=== PATIENT | male | born 1980 | race Hispanic/Latino ===

== ENCOUNTER 2024-09-07 14:23 | Inpatient (IN) | payer OTHER ==
[~2024-09-07] VITALS: Ht 165.1 cm; Wt 63.5 kg
[2024-09-07 15:24] LABS: HEMATOCRIT 21.9 % (38.2-49.6); RED BLOOD COUNT 2.74 x10e6/uL (4.3-5.7); WHITE BLOOD COUNT 7.18 x10e3/uL (4.8-10.8)
[2024-09-07 15:25] LABS: HEMOGLOBIN 6.9 g/dL (14.0-18.0); MEAN CORPUSCULAR HEMOGLOBIN 25.2 pg (28-32); MEAN CORPUSCULAR HGB CONC 31.5 g/dL (31-35); MEAN CORPUSCULAR VOLUME 79.9 fL (81-99); PLATELET COUNT 425 x10e3/uL (140-360); RED CELL DISTRIBUTION WIDTH 16.1 % (11.7-14.4)
[2024-09-07 15:26] LABS: BASOPHILS % 0.1 % (0.0-1.0); EOSINOPHILS # (AUTO) 0.1 (0.0-0.4); EOSINOPHILS % 0.7 % (0.0-6.0); LYMPHOCYTES # (AUTO) 0.5 (1.0-3.2); LYMPHOCYTES % 6.3 % (18.0-39.1); MONOCYTES # (AUTO) 0.8 (0.2-0.8); MONOCYTES % 11.4 % (4.4-11.3); NEUTROPHILS # (AUTO) 5.8 (2.1-6.9); NEUTROPHILS % 80.7 % (38.7-80.0)
[2024-09-07] MEDS: SODIUM CHLORIDE 0.9% 1000ML 1,910 ML IV SCH (15:50)
[2024-09-07 15:56] LABS: INR 1.11; PARTIAL THROMBOPLASTIN TIME 52.3 seconds (23.8-35.5)
[2024-09-07 16:03] LABS: ANION GAP 12.3 mmol/L (8-16); BILIRUBIN,TOTAL 0.2 mg/dL (0.2-1.2); CALCIUM 8.5 mg/dL (8.4-10.2); CREATININE, SERUM 0.9 mg/dL (0.72-1.25); POTASSIUM 4.3 mmol/L (3.5-5.1); TOTAL PROTEIN 9.8 g/dL (6.5-8.1)
[2024-09-07 16:04] LABS: ALBUMIN 2.3 g/dL (3.5-5.0); ALBUMIN/GLOBULIN RATIO 0.3 (0.8-2.0)
[2024-09-07 18:00] LABS: CORONAVIRUS COVID-19 AG NEGATIVE (NEGATIVE); INFLUENZA A AG NEGATIVE (NEGATIVE); INFLUENZA B AG NEGATIVE (NEGATIVE)
[2024-09-07 18:08] LABS: BILIRUBIN,URINE NEGATIVE (NEGATIVE); CLARITY,URINE CLEAR (CLEAR); COLOR,URINE YELLOW (YELLOW); GLUCOSE, URINE NEGATIVE (NEGATIVE); KETONES,URINE NEGATIVE (NEGATIVE); LEUKOCYTE ESTERASE ,URINE SMALL (NEGATIVE); NITRITE,URINE POSITIVE (NEGATIVE); PH,URINE 6 (5 - 7); URINE UROBILINOGEN 0.2 mg/dL (0.2 - 1)
[2024-09-07 18:09] LABS: PROTEIN,URINE DIPSTICK 1+ (NEGATIVE)
[2024-09-07] MEDS ORDERED: SODIUM CHLORIDE 0.9% 1000ML 1,000 ML IV SCH (18:15)
[2024-09-07] MEDS ORDERED: SODIUM CHLORIDE 0.9% 250ML 250 ML IV ONE (18:15)
[2024-09-07] MEDS ORDERED: ONDANSETRON HCL INJ 2MG/ML 2ML 2 MG/ML VIAL IV PRN (18:15)
[2024-09-07 18:24] LABS: BACTERIA,URINE MANY /HPF; RBC,URINE 0-5 /HPF (0-5); WBC,URINE (MAN) 21-50 /HPF (0-5)
[2024-09-07] MEDS ORDERED: ZOLPIDEM TARTRATE 5 MG TAB PO PRN (19:00)
[2024-09-07 19:09] VITALS: PULSE 95; RESP 16; TEMP 100.2
[2024-09-07] MEDS ORDERED: IOPAMIDOL 370 MG/ML 100 ML INFUS..BTL INJ ONE (19:17)
[2024-09-07] MEDS: ACETAMINOPHEN 325 MG TAB PO PRN (20:27)
[2024-09-07 20:50] VITALS: BP 90/62; PULSE 97; RESP 14; TEMP 98.4; O2SAT 100
[2024-09-07 23:13] VITALS: BP 90/55; PULSE 70; RESP 18; TEMP 97.5; O2SAT 98
[2024-09-08] VITALS (11 sets, daily range): BP systolic 97–142; BP diastolic 7–87; PULSE 65–91; RESP 15–20; TEMP 97.6–98.4; O2SAT 97–100
[2024-09-08] MEDS: SODIUM BICARBONATE 8.4% SYRING 50 ML in SODIUM CHLORIDE 0.45% 1,000 ML IV ONE (03:54)
[2024-09-08 06:24] LABS: HEMATOCRIT 27.4 % (38.2-49.6); HEMOGLOBIN 8.8 g/dL (14.0-18.0); MEAN CORPUSCULAR HEMOGLOBIN 26.5 pg (28-32); MEAN CORPUSCULAR HGB CONC 32.1 g/dL (31-35); MEAN CORPUSCULAR VOLUME 82.5 fL (81-99); PLATELET COUNT 383 x10e3/uL (140-360); RED BLOOD COUNT 3.32 x10e6/uL (4.3-5.7); RED CELL DISTRIBUTION WIDTH 16.3 % (11.7-14.4); WHITE BLOOD COUNT 5.13 x10e3/uL (4.8-10.8)
[2024-09-08 06:25] LABS: BASOPHILS % 0.2 % (0.0-1.0); EOSINOPHILS # (AUTO) 0.1 (0.0-0.4); EOSINOPHILS % 1.9 % (0.0-6.0); LYMPHOCYTES # (AUTO) 0.3 (1.0-3.2); LYMPHOCYTES % 5.5 % (18.0-39.1); MONOCYTES # (AUTO) 0.6 (0.2-0.8); MONOCYTES % 12.5 % (4.4-11.3); NEUTROPHILS % 78.3 % (38.7-80.0)
[2024-09-08 07:35] LABS: ANION GAP 11.2 mmol/L (8-16); CREATININE, SERUM 0.77 mg/dL (0.72-1.25); POTASSIUM 4.2 mmol/L (3.5-5.1)
[2024-09-08 07:36] LABS: BILIRUBIN,TOTAL 0.2 mg/dL (0.2-1.2); TOTAL PROTEIN 8.6 g/dL (6.5-8.1)
[2024-09-08 07:37] LABS: ALBUMIN/GLOBULIN RATIO 0.3 (0.8-2.0)
[2024-09-08] MEDS: CEFTRIAXONE 2 GM in SODIUM CHLORIDE 0.9% 100 ML IV SCH (09:07)
[2024-09-08] MEDS: FAMOTIDINE 20 MG TAB PO SCH (09:07)
[2024-09-08] MEDS: FLUCONAZOLE 400MG/200ML BAG 200 ML IV SCH (14:21)
[2024-09-08] MEDS: TRIMETHOPRIM/SULFAMETHOXAZOLE 160-800 MG TAB PO SCH (20:56)
[2024-09-09] VITALS (7 sets, daily range): BP systolic 97–114; BP diastolic 63–76; PULSE 83–104; RESP 17–19; TEMP 98.1–99.9; O2SAT 99–100
[2024-09-09] MEDS ORDERED: GADOBENATE DIMEGLUMINE 1 ML IV ONE (08:21)
[2024-09-09 09:36] LABS: CDIFF AG QUIK CHEK NEGATIVE (NEGATIVE)
[2024-09-09 09:37] LABS: CDIFF TOX QUIK CHEK NEGATIVE (NEGATIVE)
[2024-09-09 14:34] LABS: HIV 1&2 AB SCREEN ***REACTIVE*** (NONREACTIVE); HIV- 1 P24 AG SCREEN NON-REACTIVE (NONREACTIVE)
[2024-09-09] MEDS: LEVOFLOXACIN 750MG/D5W 150ML 150 ML IV SCH (16:01)
[2024-09-09] MEDS: NYSTATIN SUSPENSION 5 ML UDC PO SCH (16:01)
[2024-09-09 16:11] LABS: % CD 4 POSITIVE LYMPHOCYTES 5.2 % (30.8-58.5); BASOPHILS % 0 % (Not Estab.); CD4 HELPER ABSOLUTE COUNT 16 /uL (359-1519); EOSINOPHILS, ABSOLUTE 0.1 x10E3/uL (0.0-0.4); HEMATOCRIT 28.5 % (37.5-51.0); HEMOGLOBIN 9.1 g/dL (13.0-17.7); LYMPHOCYTES % 7 % (Not Estab.); LYMPHOCYTES, ABSOLUTE 0.3 x10E3/uL (0.7-3.1); MCHC 31.9 g/dL (31.5-35.7); MCV 85 fL (79-97); PLATELETS 386 x10E3/uL (150-450); RBC 3.36 x10E6/uL (4.14-5.80); RDW 15.9 % (11.6-15.4)
[2024-09-09] MEDS: SODIUM CHLORIDE 0.9% 250ML 250 ML IV ONE (20:05)
[2024-09-10 00:11] VITALS: BP 106/68; PULSE 83; RESP 17; TEMP 98.5; O2SAT 100
[2024-09-10 04:00] VITALS: BP 100/68; PULSE 81; RESP 17; TEMP 98.4; O2SAT 100
[2024-09-10 06:22] LABS: BASOPHILS % 0.2 % (0.0-1.0); EOSINOPHILS # (AUTO) 0.1 (0.0-0.4); EOSINOPHILS % 2.1 % (0.0-6.0); HEMATOCRIT 26.2 % (38.2-49.6); HEMOGLOBIN 8.7 g/dL (14.0-18.0); LYMPHOCYTES # (AUTO) 0.3 (1.0-3.2); LYMPHOCYTES % 4.6 % (18.0-39.1); MEAN CORPUSCULAR HEMOGLOBIN 26.7 pg (28-32); MEAN CORPUSCULAR HGB CONC 33.2 g/dL (31-35); MEAN CORPUSCULAR VOLUME 80.4 fL (81-99); MONOCYTES # (AUTO) 0.3 (0.2-0.8); NEUTROPHILS # (AUTO) 4.8 (2.1-6.9); NEUTROPHILS % 84.8 % (38.7-80.0); PLATELET COUNT 442 x10e3/uL (140-360); RED BLOOD COUNT 3.26 x10e6/uL (4.3-5.7); RED CELL DISTRIBUTION WIDTH 16.5 % (11.7-14.4); RETICULOCYTE % 0.9 % (0.8-2.2); WHITE BLOOD COUNT 5.64 x10e3/uL (4.8-10.8)
[2024-09-10 06:52] LABS: ALBUMIN 2.2 g/dL (3.5-5.0); ALBUMIN/GLOBULIN RATIO 0.3 (0.8-2.0); ANION GAP 10.9 mmol/L (8-16); BILIRUBIN,TOTAL 0.2 mg/dL (0.2-1.2); CALCIUM 8.5 mg/dL (8.4-10.2); CREATININE, SERUM 0.94 mg/dL (0.72-1.25); POTASSIUM 3.9 mmol/L (3.5-5.1)
[2024-09-10 07:17] LABS: THYROID STIMULATING HORMONE 3.575 uIU/mL (0.350-4.940)
[2024-09-10 07:32] LABS: IMMATURE GRANULOCYTES, ABS 0.1 x10E3/uL (0.0-0.1)
[2024-09-10 08:20] VITALS: BP 104/68; PULSE 92; RESP 20; TEMP 98.2; O2SAT 100
[2024-09-10 09:15] VITALS: BP 104/68; PULSE 92; RESP 20; TEMP 98.2; O2SAT 100
[2024-09-10 09:30] VITALS: BP 104/68; PULSE 92; RESP 20; TEMP 98.2; O2SAT 100
[2024-09-10] MEDS ORDERED: FLUCONAZOLE100 MG PO (11:17)
[2024-09-10] MEDS ORDERED: LEVOFLOXACIN250 MG PO (11:17)
[2024-09-10] MEDS ORDERED: BIKTARVY 50-201 EACH PO (11:17)
[2024-09-10] MEDS ORDERED: DEXAMETHASONE6 MG PO (11:17)
[2024-09-10] MEDS ORDERED: BACTRIM DS TAB1 EACH PO (11:17)
[2024-09-10] MEDS ORDERED: NYSTATIN100000 UNI PO (11:17)
[2024-09-11 06:47] LABS: TOXOPLASMA IGG ANTIBODY 3.9
[2024-09-11 06:48] LABS: TOXOPLASMA IGM ANTIBODY <3.0
[2024-09-11 06:49] LABS: HEPATITIS A ANTIBODY IGM (P) Negative; HEPATITIS B CORE IGM (P) Negative; HEPATITIS B SURFACE AG (P) Negative
[2024-09-11 06:50] LABS: HEPATITIS C ANTIBODY Non Reactive
[2024-09-13 05:07] LABS: HIV-1 RNA,QUANT. PCR C/ML 155000 copies/mL (.)
[2024-09-16 06:44] LABS: RAPID PLASMA REAGIN Reactive
[2024-09-16 07:15] LABS: FTA-ABS Reactive
[2024-09-16 07:16] LABS: RAPID PLASMA REAGIN 1:32 titer
== END 2024-09-10 12:15 | disposition home or self-care (01) | DRG 689 ==
LOC: ER 15:03 → ERHOLD 18:15 → OBSVTOIN 19:04 → MED/SURG3 20:22
PROVIDERS: ADMIT Internal Medicine; ATTEND Internal Medicine
PROC: 30233N1 Transfusion of Nonautologous Red Blood Cells into Peripheral Vein, Percutaneous Approach (ICD-10-PCS; principal; 2024-09-07)
DX: N12 Tubulo-interstitial nephritis, not specified as acute or chronic (principal); E43 Unspecified severe protein-calorie malnutrition; J18.9 Pneumonia, unspecified organism; B20 Human immunodeficiency virus [HIV] disease; Z16.12 Extended spectrum beta lactamase (ESBL) resistance; B37.0 Candidal stomatitis; R64 Cachexia; R62.7 Adult failure to thrive; B96.20 Unspecified Escherichia coli [E. coli] as the cause of diseases classified elsewhere; D64.9 Anemia, unspecified; N30.90 Cystitis, unspecified without hematuria; Z68.23 Body mass index [BMI] 23.0-23.9, adult; Z71.3 Dietary counseling and surveillance; Z53.29 Procedure and treatment not carried out because of patient's decision for other reasons; Z91.198 Patient's noncompliance with other medical treatment and regimen for other reason; Z86.19 Personal history of other infectious and parasitic diseases; Z71.81 Spiritual or religious counseling; Z79.899 Other long term (current) drug therapy
CPT/HCPCS: 36415; 70450; 70553; 71046; 71260; 74177; 74470; 80053; 81001; 82607; 82746; 83540; 83605; 84443; 84466; 85025; 85045; 85610; 85730; 86361; 86592; 86689; 86777; 86778; 86850; 86900; 86920; 87040; 87086; 87186; 87324; 87385; 87390; 87449; 87536; 99284; G0433; G0435; J0696; J1450; J7030; J7050; P9016; Q9967